=== PATIENT | female | born 1990 | race Caucasian/White ===

== ENCOUNTER → 2019-01-24 | Outpatient (CLI) | payer OTHER ==
--- NOTE | 2019-01-25 03:33 | US ---
EXAMINATION TYPE: US thyroid st tissue head/neck DATE OF EXAM: 01/24/2019 COMPARISON: NONE CLINICAL HISTORY: 28-year-old female E03.9 Hypothyroid. TECHNIQUE: Multiple sonographic images of the thyroid gland are obtained. FINDINGS: GLAND SIZE: Right Lobe: 4.5 x 1.3 x 1.4 cm Overall Parenchyma: homogenous Left Lobe: 4.5 x 1.3 x 1.5cm Overall Parenchyma: homogeneous Isthmus Thickness: 0.5 cm NODULES RIGHT: # of nodules measured on right: 1 1. 0.6 X 0.6 x 0.6 cm hypoechoic solid nodule at the lower pole with well-defined margins. This no dule is wider than tall and shows no intranodular vascularity. No prior LEFT: # of nodules measured on left: 0 Bilateral neck scanned, no evidence of lymphadenopathy. IMPRESSION: Solitary 6 mm solid nodule deep aspect of the right lower thyroid lobe.
== END ==
LOC: RADUSWWP 13:48
PROVIDERS: ATTEND Family Medicine
DX: E04.1 Nontoxic single thyroid nodule (principal)
CPT/HCPCS: 76536

== ENCOUNTER 2019-03-16 20:14 | Emergency (ER) | payer OTHER ==
[2019-03-16 20:20] VITALS: BP 176/97; TEMP 98.3
--- NOTE | 2019-03-16 21:02 | XR ---
EXAMINATION TYPE: XR hand complete LT DATE OF EXAM: 03/16/2019 COMPARISON: NONE HISTORY: Thumb pain TECHNIQUE: 3 views FINDINGS: Metacarpals are intact. I see no fracture nor dislocation. Joint spaces are normal. IMPRESSION: Negative left hand exam. No evidence of thumb fracture.
--- NOTE | 2019-03-16 21:31 | ED ---
General Adult HPI - General Chief complaint: Extremity Injury, Upper Stated complaint: thumb injury Time Seen by Provider: 03/16/19 20:23 Source: patient, RN notes reviewed, old records reviewed Mode of arrival: ambulatory Limitations: no limitations - History of Present Illness Initial comments: 28-year-old female patient with no pertinent past medical history presents to ED with left thumb injury. Patient reports that she had a friend removing a hot tub, patient reported a minor crush injury to the distal phalanx of her left thumb. Patient denies any other complaint. Patient denies any other injury. Systemic: Pt denies fatigue, myalgia, fever/chills, rash. Pt denies weakness, night sweats, weight loss. Neuro: Pt denies headache, visual disturbances, syncope or pre-syncope. HEENT: Pt denies ocular discharge or irritation, otalgia, rhinorrhea, pharyngitis or notable lymphadenopathy. Cardiopulmonary: Pt denies chest pain, SOB, heart palpitations, dyspnea on exertion. Abdominal/GI: Pt denies abdominal pain, n/v/d. : Pt denies dysuria, burning w/ urination, frequency/urgency. Denies new onset urinary or bowel incontinence. MSK: Pt denies myalgia, loss of strength or function in extremities. Neuro: Pt denies new onset weakness, paresthesias. - Related Data Allergies Allergy/AdvReac Type Severity Reaction Status Date / Time No Known Allergies Allergy Verified 03/16/19 20:20 Review of Systems ROS Statement: Those systems with pertinent positive or pertinent negative responses have been documented in the HPI. ROS Other: All systems not noted in ROS Statement are negative. Past Medical History Past Medical History: Hypertension, Thyroid Disorder Additional Past Medical History / Comment(s): atypical hemolytic uremic syndrome History of Any Multi-Drug Resistant Organisms: None Reported Additional Past Surgical History / Comment(s): Past Psychological History: No Psychological Hx Reported, Anxiety Smoking Status: Never smoker Past Alcohol Use History: None Reported Past Drug Use History: None Reported General Exam - General Exam Comments Initial Comments: Constitutional: NAD, AOX3, Pt has pleasant affect. HEENT: NC/AT, trachea midline, neck supple, no lymphadenopathy. Posterior pharynx non erythematous, without exudates. External ears appear normal, without discharge. Mucous membranes moist. Eyes PERRLA, EOM intact. There is no scleral icterus. No pallor noted. Cardiopulmonary: RRR, no murmurs, rubs or gallops, no JVD noted. Lungs CTAB in anterior and posterior schrader. No peripheral edema. Abdominal exam: Abdomen soft and non-distended. Abdomen non-tender to palpation in all 4 quadrants. Bowel sounds active in LLQ. No hepatosplenomegaly. No ecchymosis Neuro: CN II-XII grossly intact. No nuchal rigidity. MSK: Distal pharynx of left thumb mildly tender to palpation. Small contusion noted. No involvement of nail or nailbed. Full active range of motion of digit. Distal phalanx mildly tender. No posterior calf tenderness bilaterally, homans sign negative bilaterally. Posterior tibialis and radial pulse +2 bilaterally. Sensation intact in upper and lower extremities. Full active ROM in upper and lower extremities, 5/5 stregnth. Limitations: no limitations Course Vital Signs 03/16/19 03/16/19 20:16 21:36 Temperature 98.3 F Pulse Rate 92 67 Respiratory 18 17 Rate Blood Pressure 176/97 O2 Sat by Pulse 99 100 Oximetry Medical Decision Making - Medical Decision Making 28-year-old female patient with no pertinent past medical history presents to ED with left thumb injury. Patient reports that she had a friend removing a hot tub, patient reported a minor crush injury to the distal phalanx of her left thumb. Patient denies any other complaint. Patient denies any other injury. P atient vital signs displayed mild hypertension. Patient vital signs were not repeated by nursing staff prior to DC despite request, Physical exam displayed: Distal pharynx of left thumb mildly tender to palpation. Small contusion noted. No involvement of nail or nailbed. Full active range of motion of digit. Distal phalanx mildly tender. Plain film of left tenderness with acute pathology. Patient discharged will follow with primary care provider Justa hyatt for continued evaluation. Case discussed with Dr. Townsend. Disposition Clinical Impression: Contusion Disposition: HOME SELF-CARE Condition: Stable Instructions (If sedation given, give patient instructions): Contusion in Adults (ED) Additional Instructions: Patient to adhere to previously discussed treatment plan and will take medication(s) as directed. Patient to follow up with PCP in 1-2 days. Patient to return to ED if symptoms do not improve. May use Tylenol or Motrin as needed for pain. Follow with primary care provider in 1-2 days. Orthopedic consult provided if symptoms persist. Is patient prescribed a controlled substance at d/c from ED?: No Referrals: Lissette Toscano MD [Primary Care Provider] - 1-2 days Kevin Mendez DO [Doctor of Osteopathic Medicine] - 1-2 days
[2019-03-16 21:38] VITALS: PULSE 67; RESP 17
== END 2019-03-16 21:36 | disposition home or self-care (01) ==
LOC: EC 20:14
DX: S60.012A Contusion of left thumb without damage to nail, initial encounter (principal); W23.1XXA Caught, crushed, jammed, or pinched between stationary objects, initial encounter; Y93.89 Activity, other specified
CPT/HCPCS: 99283

== ENCOUNTER → 2021-01-24 | Outpatient (CLI) | payer OTHER | END | disposition home or self-care (01) | LOC: LABWHC1 15:34 | PROVIDERS: ATTEND Family Medicine | DX: Z20.822 Contact with and (suspected) exposure to COVID-19 (principal) | CPT/HCPCS: U0003; U0005 ==

== ENCOUNTER → 2021-01-29 | Outpatient (CLI) | payer OTHER | END | disposition home or self-care (01) | LOC: LABWHC1 16:25 | PROVIDERS: ATTEND Family Medicine | DX: Z20.822 Contact with and (suspected) exposure to COVID-19 (principal) | CPT/HCPCS: U0003; C9803; U0005 ==

== ENCOUNTER → 2021-05-13 | Outpatient (CLI) | payer OTHER ==
--- NOTE | 2021-05-14 04:28 | MR ---
EXAMINATION TYPE: MR knee LT wo con DATE OF EXAM: 05/13/2021 COMPARISON: None HISTORY: DEEP knee pain Multiplanar multiecho imaging of the left knee was performed with no contrast. There are small knee joint effusion. The anterior and posterior cruciate ligaments are intact. Medial meniscus is intact. Lateral meniscus is intact the collateral ligaments are intact. Joint spaces are fairly normal. I see no bony destructive process. There is no evidence of a fracture. IMPRESSION: Small knee joint effusion. Otherwise negative exam. No evidence of ligament or meniscal tear.
--- NOTE | 2021-05-14 08:32 | MR ---
EXAMINATION TYPE: MR knee RT wo con DATE OF EXAM: 05/14/2021 COMPARISON: None HISTORY: DEEP knee pain TECHNIQUE: Multiplanar, multisequence imaging of the right knee is performed without IV contrast. FINDINGS: MEDIAL MENISCUS: Anterior and posterior horns are intact without tear. LATERAL MENISCUS: Anterior and posterior horns are intact without tear. CRUCIATE LIGAMENTS: The anterior and posterior cruciate ligaments are intact and unremarkable. COLLATERAL LIGAMENTS: The medial collateral ligament and lateral collateral ligament complex are inta ct and unremarkable. EXTENSOR MECHANISM: Visualized quadriceps and patellar tendons are intact. EFFUSION: There is a debris-containing small knee joint effusion. POPLITEAL CYST: No popliteal/riley cyst. CARTILAGE: Articular cartilage is preserved. BONE MARROW SIGNAL: No focal abnormal marrow signal is appreciated. OTHER: No additional significant abnormality is appreciated. IMPRESSION: Small debris-containing knee joint effusion.
== END | disposition home or self-care (01) ==
LOC: RADMRIMAIN 16:16
PROVIDERS: ATTEND Family Medicine
DX: M25.462 Effusion, left knee (principal); M25.461 Effusion, right knee

== ENCOUNTER → 2021-06-26 | Outpatient (CLI) | payer OTHER ==
--- NOTE | 2021-06-27 10:43 | US ---
EXAMINATION TYPE: US thyroid st tissue head/neck DATE OF EXAM: 06/26/2021 COMPARISON: US 2019 CLINICAL HISTORY: E04.1 THYROID NODULE. Takes Levothyroxine GLAND SIZE: Right Lobe: 4.3 x 1.3 x 1.3 cm Overall Parenchyma: homogenous Left Lobe: 4.3 x 1.6 x 1.2 cm Overall Parenchyma: homogeneous Isthmus Thickness: 0.4 cm NODULES RIGHT: # of nodules measured on right: 1 1. .2 X 0.2 x 0.1 cm, upper pole,cystic, anechoic nodule, which is wider than tall, with smooth mar gins, without echogenic foci. No prior seen in right upper pole. ( prior right inferior nodule seen on 2019 US appears today as lobular extension to lateral thyroid) LEFT: # of nodules measured on left: 0 ISTHMUS: # of nodules measured in the isthmus: 0 Bilateral neck scanned: superior to right thyroid prominent lymph node is seen = 2.8 x 1.5 x 0.7cm. IMPRESSION: 1. Benign appearance thyroid ultrasound. 2. Prominent lymph node within the right neck. 2017 ACR TI-RADS LEVEL: TR-RADS 1 - BENIGN: No FNA *Highest TI-RADS level nodule reported
== END | disposition home or self-care (01) ==
LOC: RADUSWWP 15:26
PROVIDERS: ATTEND Family Medicine
DX: E04.1 Nontoxic single thyroid nodule (principal)
CPT/HCPCS: 76536

== ENCOUNTER → 2022-12-07 | Outpatient (CLI) | payer BC ==
--- NOTE | 2022-12-07 11:12 | XR ---
INDICATION: Patient age:Female; 32 years old; Reason for study: R09.81 nasal congestion; PHH. COMPARISON: None. TECHNIQUE: 5 views the sinus. FINDINGS: Soft tissues and osseous structures are within normal limits. No evidence to suggest radiopaque forei gn body. The paranasal sinuses and mastoid air cells are well aerated. IMPRESSION: Unremarkable sinus radiograph.
== END | disposition home or self-care (01) ==
LOC: RADXRMAIN 10:27
PROVIDERS: ATTEND Family Medicine
DX: R09.81 Nasal congestion (principal)
CPT/HCPCS: 70220

== ENCOUNTER 2023-11-02 09:50 | Observation (INO) | payer BC ==
--- NOTE | 2023-11-02 10:01 | ED ---
Dizziness HPI - General Source: patient, RN notes reviewed Mode of arrival: ambulatory Limitations: no limitations <Epi Maldonado - Last Filed: 11/02/23 09:59> <Rogelio Han - Last Filed: 11/02/23 12:19> - General Chief Complaint: Dizziness Stated Complaint: dizziy,Sleard speech Time Seen by Provider: 11/02/23 09:59 - History of Present Illness Initial Comments: 33-year-old female presents emergency Department chief complaint of intermittent episodes of dizziness, lightheadedness, slurred speech. She states only lasts a few seconds. She states is slurred speech is only associated with other symptoms. She denies any focal weakness no severe headache no trauma no prior medical complaints. (Epi Maldonado) Dictation was produced using [employer] dictation software. please excuse any grammatical, word or spelling errors. Chief Complaint: 33-year-old female presents with slurred speech and dizziness History of Present Illness: 33-year-old femalepast medical history presents to the emergency department after having episode of slurred speech. She was at work when this happened. He is preceded by an episode of dizziness. She called her primary care doctor to make an appointment and was instead instructed to come to the ER for concerns of possible CVA. Patient has any symptoms at this time. She noticed that when she would talk on the phone the last few words in her sense with seem a little slurred. The ROS documented in this emergency department record has been reviewed and confirmed by me. Those systems with pertinent positive or negative responses have been documented in the HPI. All other systems are other negative and/or noncontributory. (Rogelio Han) - Related Data Home Medications Medication Instructions Recorded Confirmed Levothyroxine Sodium [Synthroid] 100 mcg PO DAILY@0500 11/02/23 11/02/23 Loratadine [Claritin] 10 mg PO DAILY 11/02/23 11/02/23 Metoprolol Succinate (ER) [Toprol 100 mg PO DAILY 11/02/23 11/02/23 Xl] hydroCHLOROthiazide [Hydrodiuril] 25 mg PO DAILY 11/02/23 11/02/23 Allergies Allergy/AdvReac Type Severity Reaction Status Date / Time latex Allergy Swelling Verified 11/02/23 12:08 Review of Systems ROS Other: All systems not noted in ROS Statement are negative. <Epi Maldonado - Last Filed: 11/02/23 09:59> ROS Other: All systems not noted in ROS Statement are negative. <Rogelio Han - Last Filed: 11/02/23 12:19> ROS Statement: Those systems with pertinent positive or pertinent negative responses have been documented in the HPI. Past Medical History Past Medical History: Hypertension, Thyroid Disorder Additional Past Medical History / Comment(s): atypical hemolytic uremic syndrome History of Any Multi-Drug Resistant Organisms: None Reported Additional Past Surgical History / Comment(s): Past Psychological History: No Psychological Hx Reported, Anxiety Smoking Status: Never smoker Past Alcohol Use History: None Reported Past Drug Use History: None Reported <Epi Maldonado - Last Filed: 11/02/23 09:59> General Exam Limitations: no limitations <Epi Maldonado - Last Filed: 11/02/23 09:59> <Rogelio Han - Last Filed: 11/02/23 12:19> - General Exam Comments Initial Comments: Visual Physical Exam Vital signs reviewed General: Well-appearing, nontoxic, no acute distress. Head: Normocephalic, atraumatic Eyes: PERRLA, EOMI ENT: Airway patent Chest: Nonlabored breathing Skin: No visual rash, normal skin tone Neuro: Alert and oriented 3 Musculoskeletal: No gross abnormalities (Epi Maldonado) PHYSICAL EXAM: General Impression: Alert and oriented x3, not in acute distress HEENT: Normocephalic atraumatic, extra-ocular movements intact, pupils equal and reactive to light bilaterally, mucous membranes moist. Cardiovascular: Heart regular rate and rhythm Chest: Able to complete full sentences, no retractions, no tachypnea Abdomen: abdomen soft, non-tender, non-distended, no organomegaly Musculoskeletal: Pulses present and equal in all extremities, no peripheral edema Motor: no focal deficits noted Neurological: CN II-XII grossly intact, no focal motor or sensory deficits noted, NIH 0 Skin: Intact with no visualized rashes Psych: Normal affect and mood (Rogelio Han) Course Vital Signs 11/02/23 09:55 Temperature 98.3 F Pulse Rate 91 Respiratory 18 Rate Blood Pressure 137/99 O2 Sat by Pulse 98 Oximetry Medical Decision Making <Epi Maldonado - Last Filed: 11/02/23 09:59> - Lab Data Result diagrams: 11/02/23 11:17 11/02/23 11:17 <Rogelio Han - Last Filed: 11/02/23 12:19> - Medical Decision Making I completed the quick note portion of this chart signed Epi Maldonado PA-C (Epi Maldonado) Was pt. sent in by a medical professional or institution (, PA, TRANSPORTATION MAINTENANCE SUPERVISOR, urgent care, hospital, or shelter...) When possible be specific @ -No Did you speak to anyone other than the patient for history (EMS, parent, family, police, friend...)? What history was obtained from this source @ -No Did you review nursing and triage notes (agree or disagree)? Why? @ -I reviewed and agree with nursing and triage notes Were old charts reviewed (outside hosp., previous admission, EMS record, old EKG, old radiological studies, urgent care reports/EKG's, shelter records)? Report findings @ -No old charts were reviewed Differential Diagnosis (chest pain, altered mental status, abdominal pain women, abdominal pain men, vaginal bleeding, musculoskeletal, weakness, fever, dyspnea, syncope, headache, dizziness, GI bleed, back pain, seizure, CVA, palpatations, mental health)? @ - Differential CVA: Ischemic stroke, hemorrhagic stroke, brain tumor, atypical migraine, Wernicke's encephalopathy, seizure, multiple sclerosis, meningitis, encephalitis, hypoglycemia, Guillain-Weiss, electrolytes disturbance, myasthenia gravis.... This is not meant to be an all-inclusive list EKG interpreted by me (3pts min.). @ -None done X-rays interpreted by me (1pt min.). @ -None done CT interpreted by me (1pt min.). @ -Computed tomography scan of the brain shows no intercranial bleed U/S interpreted by me (1pt. min.). @ -None done What testing was considered but not performed or refused? (CT, X-rays, U/S, labs)? Why? @ -None What meds were considered but not given or refused? Why? @ -None Did you discuss the management of the patient with other professionals (professionals i.e. , PA, TRANSPORTATION MAINTENANCE SUPERVISOR, lab, RT, psych nurse, social psychologist, can pusher, teacher, policy officer, correctional case manager)? Give summary @ -Case discussed with hospitalist for admission Was smoking cessation discussed for >3mins.? @ -No Was critical care preformed (if so, how long)? @ -No Were there social determinants of health that impacted care today? How? (Homelessness, low income, unemployed, alcoholism, drug addiction, transportation, low edu. Level, literacy, decrease access to med. care, penitentiary, rehab)? @ -No Was there de-escalation of care discussed even if they declined (Discuss DNR or withdrawal of care, Hospice)? DNR status @ -No What co-morbidities impacted this encounter? (DM, HTN, Smoking, COPD, CAD, Cancer, CVA, ARF, Chemo, Hep., AIDS, mental health diagnosis, sleep apnea, morb id obesity)? @ -None Was patient admitted / discharged? Hospital course, mention meds given and route, prescriptions, significant lab abnormalities, going to OR and other pertinent info. @ -33-year-old female presents emergency department for episodes of slurred speech. Vital signs are stable. Physical examination is benign. Patient elis es any symptoms at bedside. NIH score is 0. Laboratory evaluation is unremarkable. Computed tomography scan does not show any evidence of intracranial bleed however radiologist did make a comment that perhaps there is a area of low attenuation in the right parieto-occipital junction. Patient not ified of these results. She is agreeable with admission with neurology consultation. Undiagnosed new problem with uncertain prognosis? @ -No Drug Therapy requiring intensive monitoring for toxicity (Heparin, Nitro, Insulin, Cardizem)? @ -No Were any procedures done? @ -No Diagnosis/symptom? Acute, or Chronic, or Acute on Chronic? Uncomplicated (without systemic symptoms) or Complicated (systemic symptoms)? @ -Slurred speech Side effects of treatment? @ -No Exacerbation, Progression, or Severe Exacerbation? @ -No Poses a threat to life or bodily function? How? (Chest pain, USA, MS, pneumonia, PE, COPD, DKA, ARF, appy, cholecystitis, CVA, Diverticulitis, Homicidal, Suicidal, threat to staff... and all critical care pts) @ -yes (Rogelio Han) - Lab Data Lab Results 11/02/23 11/02/23 11/02/23 Range/Units 11:17 11:17 11:17 WBC 8.8 (3.8-10.6) k/uL RBC 5.41 H (3.80-5.40) m/uL Hgb 15.7 (11.4-16.0) gm/dL Hct 46.7 H (34.0-46.0) % MCV 86.3 (80.0-100.0) fL MCH 29.1 (25.0-35.0) pg MCHC 33.7 (31.0-37.0) g/dL RDW 12.6 (11.5-15.5) % Plt Count 365 (150-450) k/uL MPV 7.3 Neutrophils % 65 % Lymphocytes % 27 % Monocytes % 4 % Eosinophils % 2 % Basophils % 1 % Neutrophils # 5.7 (1.3-7.7) k/uL Lymphocytes # 2.4 (1.0-4.8) k/uL Monocytes # 0.4 (0-1.0) k/uL Eosinophils # 0.2 (0-0.7) k/uL Basophils # 0.1 (0-0.2) k/uL Sodium 140 (137-145) mmol/L Potassium 3.7 (3.5-5.1) mmol/L Chloride 100 (98-107) mmol/L Carbon Dioxide 29 (22-30) mmol/L Anion Gap 11 mmol/L BUN 9 (7-17) mg/dL Creatinine 0.69 (0.52-1.04) mg/dL Est GFR (CKD-EPI)AfAm >90 (>60 ml/min/1.73 sqM) Est GFR (CKD-EPI)NonAf >90 (>60 ml/min/1.73 sqM) Glucose 91 (74-99) mg/dL Calcium 9.5 (8.4-10.2) mg/dL Magnesium 1.8 (1.6-2.3) mg/dL Total Bilirubin 0.5 (0.2-1.3) mg/dL AST 22 (14-36) U/L ALT 20 (4-34) U/L Alkaline Phosphatase 85 (38-126) U/L Troponin I <0.012 (0.000-0.034) ng/mL Total Protein 8.3 H (6.3-8.2) g/dL Albumin 4.6 (3.5-5.0) g/dL Disposition <Epi Maldonado - Last Filed: 11/02/23 09:59> Decision Time: 12:19 <Rogelio Han - Last Filed: 11/02/23 12:19> Clinical Impression: Slurred speech Disposition: ADMITTED IP TO THIS HOSP Condition: Fair Referrals: Lissette Toscano MD [Primary Care Provider] - 1-2 days
--- NOTE | 2023-11-02 10:34 | CT ---
EXAMINATION TYPE: CT brain wo con DATE OF EXAM: 11/02/2023 COMPARISON: NONE HISTORY: dizzy CT DLP: 1094.9 mGycm. Automated Exposure Control for Dose Reduction was Utilized. TECHNIQUE: CT scan of the head is performed without contrast. FINDINGS: There is no acute intracranial hemorrhage, mass effect, or midline shift identified. Ther e is a low area of attenuation parieto-occipital junction most likely be related to a prominent sulcu s. The ventricles and sulci are within normal limits in size. The globes are intact and changes of mild sinus. 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 Discussed with ref erring clinician 10:30 AM 11/02/2023. IMPRESSION: 1. No acute intracranial hemorrhage, mass effect, or midline shift is seen. There is a area of low at tenuation in the right parieto-occipital junction posteriorly which is indeterminate. May represent a prominent sulcus. Other etiologies not excluded. Recommend MRI.
--- NOTE | 2023-11-02 10:39 | XR ---
EXAMINATION TYPE: XR chest 2V DATE OF EXAM: 11/02/2023 COMPARISON: None INDICATION: Dizziness slurred speech TECHNIQUE: Frontal and lateral views of the chest are obtained. FINDINGS: The heart size is normal. The pulmonary vasculature is normal. The lungs are clear. IMPRESSION: 1. No acute pulmonary process.
[2023-11-02 11:31] LABS: Basophils # (A) 0.1 k/uL (0-0.2); Basophils % (A) 1 %; Eosinophils # (A) 0.2 k/uL (0-0.7); Eosinophils % (A) 2 %; HCT 46.7 % (34.0-46.0); HGB 15.7 gm/dL (11.4-16.0); Lymphocytes # (A) 2.4 k/uL (1.0-4.8); Lymphocytes % (A) 27 %; MCH 29.1 pg (25.0-35.0); MCHC 33.7 g/dL (31.0-37.0); MCV 86.3 fL (80.0-100.0); Mean Platelet Volume 7.3; Monocytes # (A) 0.4 k/uL (0-1.0); Monocytes % (A) 4 %; Neutrophils # (A) 5.7 k/uL (1.3-7.7); Neutrophils % (A) 65 %; Platelet Count 365 k/uL (150-450); RBC 5.41 m/uL (3.80-5.40); RDW 12.6 % (11.5-15.5); WBC 8.8 k/uL (3.8-10.6)
[2023-11-02 11:44] LABS: Potassium 3.7 mmol/L (3.5-5.1)
[2023-11-02 11:46] LABS: ALT 20 U/L (4-34); AST 22 U/L (14-36); African American GFR (CKD) >90 (>60 ml/min/1.73 sqM); Albumin 4.6 g/dL (3.5-5.0); Alkaline Phosphatase 85 U/L (38-126); Anion Gap 11 mmol/L; Blood Urea Nitrogen 9 mg/dL (7-17); Calcium 9.5 mg/dL (8.4-10.2); Carbon Dioxide 29 mmol/L (22-30); Chloride 100 mmol/L (98-107); Glucose 91 mg/dL (74-99); Magnesium 1.8 mg/dL (1.6-2.3); Non-African American GFR(CKD) >90 (>60 ml/min/1.73 sqM); Sodium 140 mmol/L (137-145); Total Bilirubin 0.5 mg/dL (0.2-1.3); Total Protein 8.3 g/dL (6.3-8.2)
[2023-11-02] MEDS ORDERED: ASPIRIN 81 MG PO STA (11:55)
[2023-11-02] MEDS ORDERED: NALOXONE 0.4 MG/ML 1 ML VIAL IV PRN (12:14)
--- NOTE | 2023-11-02 15:58 | MR ---
EXAMINATION TYPE: MR brain wo con DATE OF EXAM: 11/02/2023 3:16 PM CLINICAL INDICATION:Female, 33 years old with history of abnormal CT; PHH, Abnormal CT COMPARISON: CT 11/02/2023. TECHNIQUE: Multi planar, multi sequence imaging was performed through the brain including: T1, T2, In version recovery, Diffusion weighted imaging, and gradient echo imaging. No gadolinium was given. FINDINGS: There is a prominent sulcus in the area of concern on prior CT. The hurtado-white junctions, ventricular system, and cisterns appear unremarkable.. Midline structures show no abnormality. Diffusion-weighte d imaging shows no evidence of restricted diffusion. The susceptibility weighted images do not reveal any evidence for micro-hemorrhage. The bone marrow signal is within normal limits. Paranasal sinuses and mastoid air cells: No significant paranasal sinus disease. Visualized orbits: Orbital contents are intact. IMPRESSION: No evidence of intracranial mass or acute/subacute infarct. Finding on prior CT correlates with a pro minent sulcus.
--- NOTE | 2023-11-02 16:08 | P.CNNES ---
History of Present Illness Consult date: 11/02/23 Requesting physician: Rogelio Han Reason for Consult: slurred speech, abnormal CT History of Present Illness: Patient is a 33-year-old right-handed female with history of hypertension, came to the hospital at 9:50 AM because of possible TIA. Patient states that for last 1 week she has been having random dizzy spells. It is a quick spin lasting for just a couple seconds and then goes away and she is fine afterwards. It feels like a floating sensation like her vision catching up to the head. The symptoms can happen at no particular time of the day, she would be sitting and looking at her cell phone and it happens. No relation to changes in head or body position. These episodes were occurring several times a day. No other symptoms. This morning she woke up at 6:40 AM and went to work at 8 PM. She wa s feeling fine at that time. At 8:30 AM she was on the phone and also on the computer, as she works as a customer service. While talking, she noted her words were not completing, slightly slurred speech, and felt like she was drunk although she was not drinking. The slurred speech would last for a minute and then goes away and come back off and on for about half an hour. She got concerned therefore came to the hospital. There was no associated facial droop, visual disturbance, focal numbness tingling or weakness. White is on arrival blood pressure 137/99, which has gone up to 160/107 and then 158/106, pulse rate 91 temperature 98.3. Blood test shows normal CBC, CMP, troponin. Urine hCG negative. CT head revealed no acute intracranial process. There is an area of low attenuation in the right parieto-occipital junction posteriorly, which is indeterminate. May represent a prominent sulcus. Other etiologies is not excluded. I personally reviewed CT head, to meet appears more of a prominent sulcus. Chest x-ray showed no acute per minute process. Patient does not take any control pills. She does have hypertension for 11 years, currently on metoprolol, HCTZ and levothyroxine. Patient does not take any antiplatelet medication at home. She denies any tobacco or alcohol. No diabetes. She had undergone E-sure procedure. Review of Systems Constitutional: Denies chills, Denies fever Eyes: denies blurred vision, denies diplopia, denies pain Ears: deny: decreased hearing, ear discharge Ears, nose, mouth and throat: Denies headache, Denies sore throat Cardiovascular: Denies chest pain, Denies shortness of breath Respiratory: Denies cough, Denies excessive sputum Gastrointestinal: Denies abdominal pain, Denies diarrhea, Denies nausea, Denies vomiting Genitourinary: Denies dysuria, Denies hematuria, Denies urge incontinence Musculoskeletal: Denies low back pain, Denies myalgias, Denies neck pain Integumentary: Denies pruritus, Denies rash Neurological: Reports as per HPI Psychiatric: Denies anxiety, Denies depression Hematologic/Lymphatic: Denies easy bleeding, Denies easy bruising Past Medical History Past Medical History: Hypertension, Thyroid Disorder Additional Past Medical History / Comment(s): atypical hemolytic uremic syndrome History of Any Multi-Drug Resistant Organisms: None Reported Additional Past Surgical History / Comment(s): Past Psychological History: No Psychological Hx Reported, Anxiety Smoking Status: Never smoker Past Alcohol Use History: None Reported Past Drug Use History: None Reported Medications and Allergies Home Medications Medication Instructions Recorded Confirmed Type Levothyroxine Sodium [Synthroid] 100 mcg PO DAILY@0500 11/02/23 11/02/23 History Loratadine [Claritin] 10 mg PO DAILY 11/02/23 11/02/23 History Metoprolol Succinate (ER) [Toprol 100 mg PO DAILY 11/02/23 11/02/23 History Xl] hydroCHLOROthiazide [Hydrodiuril] 25 mg PO DAILY 11/02/23 11/02/23 History Allergies Allergy/AdvReac Type Severity Reaction Status Date / Time latex Allergy Swelling Verified 11/02/23 12:08 Physical Examination - Vital Signs Vital Signs: Vital Signs Temp Pulse Resp BP Pulse Ox 11/02/23 14:42 68 16 160/107 98 11/02/23 12:28 90 20 154/93 98 11/02/23 09:55 98.3 F 91 18 137/99 98 Intake and Output 11/02/23 11/02/23 11/02/23 06:59 14:59 22:59 Other: Weight 95.254 kg Patient is a young female, very pleasant, in no acute distress. Patient is alert awake oriented to time place and person. Speech and language functions are normal. Patient can name and repeat very well. No aphasia or dysarthria. Attention, concentration and fund of knowledge is adequate. On cranial nerve examination, pupils are equal, round and reacting to light, visual schrader are full on confrontation, with no neglect on double simultaneous stimulation. Extraocular muscles are intact with no nystagmus. Face is symmetr ic, tongue protrudes to the midline. Palatal elevation and sensation normal, hearing and shoulder shrug normal, facial sensation normal. On muscle strength testing, there is no pronator drift and the strength is normal in arms and legs distally and proximally. Deep tendon reflexes are symmetric 1+ to 2 in the upper limbs, 2+ at the knees, 2 ankles and plantars downgoing bilaterally. Sensory to touch is equal with no neglect on double simultaneous stimulation. Cerebellar function showed no ataxia for [id number] testing. No dysdiadochokinesia. No ataxia for [id number] testing on either side. Tone and bulk of muscles normal. Gait deferred.. On general examination, there is no carotid bruit or murmur, S1-S2 audible. Chest is clear on consultation. Abdomen is soft nontender. No organomegaly, bowel sounds present. Peripheral pulses are present. No peripheral edema. Results - Laboratory Findings CBC and BMP: 11/02/23 11:17 11/02/23 11:17 Abnormal Lab Findings: Abnormal Labs 11/02/23 11/02/23 11:17 11:17 RBC 5.41 H Hct 46.7 H Total Protein 8.3 H Assessment and Plan Assessment: * Possible TIA, manifesting with slurred speech off and on for half an hour, and now resolved. * Recurrent dizzy spells off and on for last 1 week, unclear cause, rule out arrhythmia * Hypertension, uncontrolled Plan: * MRI of the brain without contrast, revealed no evidence of intracranial mass or acute/subacute infarct. Findings on prior CT correlates with a prominent sulcus. I personally reviewed MRI, and agree with the findings. * 2-D echo with bubble study to rule out PFO * Carotid Doppler, rule out stenosis * Fasting a.m. lipid panel * Hemoglobin A1c * Optimize control of blood pressure. * Patient received aspirin 324 mg in the ER. Continue aspirin 81 mg daily ind efinitely. * Neuro checks as per protocol. * Telemetry monitoring rule out any arrhythmia * DVT prophylaxis: Heparin 5000 units subcu every 12 hours * Neurology will continue to follow. Thank you for the consult.
--- NOTE | 2023-11-02 16:57 | US ---
EXAMINATION TYPE: US carotid duplex BILAT DATE OF EXAM: 11/02/2023 COMPARISON: NONE CLINICAL INDICATION: Female, 33 years old with history of TIA, hypertension; Dizziness, HTN TECHNIQUE: Carotid duplex ultrasound examination. Indirect Doppler criteria was utilized. FINDINGS: EXAM MEASUREMENTS: RIGHT: Peak Systolic Velocity (PSV) cm/sec ----- Right CCA: 94 ----- Right ICA: 110 ----- Right ECA: 104 ICA/CCA ratio: 1.17 RIGHT: End Diastole cm/sec ----- Right CCA: 24.0 ----- Right ICA: 43.6 ----- Right ECA: 25.2 LEFT: Peak Systolic Velocity (PSV) cm/sec ----- Left CCA: 91.5 ----- Left ICA: 80.7 ----- Left ECA: 77.1 ICA/CCA ratio: 0.88 LEFT: End Diastole cm/sec ----- Left CCA: 28.3 ----- Left ICA: 36.0 ----- Left ECA: 16.4 VERTEBRALS (direction of flow): Right Vertebral: Antegrade Left Vertebral: Antegrade Rhythm: Normal CODING EDUCATOR NOTES: Minimal plaque bilateral bifurcations. No evidence of increased velocities IMPRESSION: Less than 50% stenosis of the bilateral carotid bifurcations. Criteria for Assigning % of Stenosis / Diameter reduction (Estimation based on the indirect measurements of the internal carotid artery velocities (ICA PSV). 1. Normal (no stenosis)=ICA PSV < 125 cm/s: ratio < 2.0: ICA EDV<40 cm/s. 2. Less than 50% stenosis=ICA PSV < 125 cm/s: ratio < 2.0: ICA EDV<40 cm/s. 3. 50 to 69% stenosis=ICA PSV of 125 to 230 cm/s: ration 2.0 ? 4.0: ICA EDV 40-100 cm/s. 4. Greater than 70% stenosis to near occlusion= ICA PSV > 230 cm/s: ratio > 4.0: ICA EDV > 100 cm/s. 5. Near occlusion= ICA PSV velocities may be low or undetectable: variable ratio and ICA EDV. 6. Total occlusion=unable to detect flow.
[2023-11-02] MEDS: FAMOTIDINE 20 MG/2 ML VIAL IV SCH (21:06)
[2023-11-02] MEDS: HEPARIN SODIUM,PORCINE 5,000 UNIT/ML 1 ML VIAL SQ SCH (21:14)
[2023-11-03] MEDS ORDERED: LEVOTHYROXINE 100 MCG TAB PO SCH (05:00)
[2023-11-03 06:21] VITALS: RESP 18
[2023-11-03] MEDS: FAMOTIDINE 20 MG/2 ML VIAL IV SCH (08:21)
[2023-11-03] MEDS: HEPARIN SODIUM,PORCINE 5,000 UNIT/ML 1 ML VIAL SQ SCH (08:21)
[2023-11-03] MEDS ORDERED: ASPIRIN 81 MG PO SCH (09:00)
[2023-11-03] MEDS ORDERED: hydroCHLOROthiazide 25 MG TAB PO SCH (09:00)
[2023-11-03] MEDS ORDERED: METOPROLOL SUCCINATE (ER) 100 MG TAB.ER.24H PO SCH (09:00)
--- NOTE | 2023-11-03 09:20 | P.HPIM ---
History of Present Illness This is a pleasant 33 results female with past medical history of hypertension, hypothyroidism. Patient presents because of a transient and occasional drowsiness and slurred speech for 1 weeks duration Patient told me she has these dizzy spells that last is 45 minutes, it happens even while she was sitting, she has several of them but now resolved She describes there is delayed in her vision to catch up things when she looks and to the side when this happens but not back to normal. Today she noticed little bit slurred speech which was abnormal for her so she decided to come to the emergency room She has another episode last one of which lasted about 5 minutes at 9:00. But she had multiple of them yesterday. Currently patient is asymptomatic and back to her baseline. Pain or dyspnea. No palpitation. No change in urine or bowel habits. No fever. Currently she denies any headache dizziness weakness numbness. No blur red/double vision no slurred speech. Denies smoking alcohol or illicit drugs Patient Vitas looks stable, blood pressure mildly elevated Labs were unremarkable including CBC, BMP and liver enzymes and troponins. Urine test was negative. Chest x-ray is negative for acute process. CT of the brain is negative for acute process but there is prominent area of the right parieto-occipital lobe. Review of Systems Review of systems CONSTITUTIONAL: No fever, no malaise, no fatigue. HEENT: No recent visual problems or hearing problems. Denied any sore throat. CARDIOVASCULAR: No orthopnea, PND, no palpitations, no syncope. PULMONARY: No shortness of breath, no cough, no hemoptysis. GASTROINTESTINAL: No diarrhea, no nausea, no vomiting, no abdominal pain. Normoactive bowel sounds. NEUROLOGICAL: No headaches, no weakness, no numbness. HEMATOLOGICAL: Denies any bleeding or petechiae. GENITOURINARY: Denies any burning micturition, frequency, or urgency. MUSCULOSKELETAL/RHEUMATOLOGICAL: Denies any joint pain, swelling, or any muscle pain. ENDOCRINE: Denies any polyuria or polydipsia. Past Medical History Past Medical History: Hypertension, Thyroid Disorder Additional Past Medical History / Comment(s): atypical hemolytic uremic syndrome History of Any Multi-Drug Resistant Organisms: None Reported Additional Past Surgical History / Comment(s): Past Psychological History: No Psychological Hx Reported, Anxiety Smoking Status: Never smoker Past Alcohol Use History: None Reported Past Drug Use History: None Reported Medications and Allergies Home Medications Medication Instructions Recorded Confirmed Type Levothyroxine Sodium [Synthroid] 100 mcg PO DAILY@0500 11/02/23 11/02/23 History Loratadine [Claritin] 10 mg PO DAILY 11/02/23 11/02/23 History Metoprolol Succinate (ER) [Toprol 100 mg PO DAILY 11/02/23 11/02/23 History Xl] hydroCHLOROthiazide [Hydrodiuril] 25 mg PO DAILY 11/02/23 11/02/23 History Allergies Allergy/AdvReac Type Severity Reaction Status Date / Time latex Allergy Swelling Verified 11/02/23 12:08 Physical Exam Vitals: Vital Signs Temp Pulse Resp BP Pulse Ox 11/02/23 12:28 90 20 154/93 98 11/02/23 09:55 98.3 F 91 18 137/99 98 Intake and Output 11/01/23 11/02/23 11/02/23 22:59 06:59 14:59 Other: Weight 95.254 kg GENERAL: The patient is alert and oriented x3, not in any acute distress. Well developed, well nourished. HEENT: Pupils are round and equally reacting to light. EOMI. No scleral icterus. No conjunctival pallor. Normocephalic, atraumatic. No pharyngeal erythema. No thyromegaly. CARDIOVASCULAR: S1 and S2 present. No murmurs, rubs, or gallops. PULMONARY: Chest is clear to auscultation, no wheezing , no crackles. ABDOMEN: Soft, nontender, nondistended, normoactive bowel sounds. No palpable organomegaly. MUSCULOSKELETAL: No joint swelling or deformity. EXTREMITIES: No cyanosis, clubbing, or pedal edema. NEUROLOGICAL: Gross neurological examination did not reveal any focal deficits. SKIN: No rashes. no petechiae. Results CBC & Chem 7: 11/02/23 11:17 11/02/23 11:17 Labs: Abnormal Lab Results - Last 24 Hours (Table) 11/02/23 11/02/23 Range/Units 11:17 11:17 RBC 5.41 H (3.80-5.40) m/uL Hct 46.7 H (34.0-46.0) % Total Protein 8.3 H (6.3-8.2) g/dL Assessment and Plan Assessment: transient and occasional drowsiness and slurred speech for 1 weeks duration. Rule out TIA stroke. Hypertension Hypothyroidism Plan: Continue with aspirin Follow-up with neurology consult MRI of the brain follow-up Labs and medication were reviewed.. Continue same treatment. Continue with symptomatic treatment. Resume home medication. Monitor labs and vitals. DVT and GI prophylaxis. Further recommendations as per clinical course of the patient DVT prophylaxis: Subcutaneous heparin GI Prophylaxis: Pepcid PT/OT: Pending Prognosis is guarded
--- NOTE | 2023-11-03 10:20 | CA ---
Transthoracic Echo Report Name: Sharon Moura Age: 33 Gender: F : 1990 Exam Date: 11/02/2023 16:28 Exam Location: [facility] Ht (in): 62 Wt (lb): 210 Ordering Physician: Shahriar Bethea MD Attending/Referring Phys: Motor Vehicle Field Representative Sabina Becerra RDCS Procedure CPT: Indications: ?TIA Cardiac Hx: Technical Quality: Fair Contrast 1: Agitated Saline Total Dose (mL): 10 Contrast 2: Total Dose (mL): MEASUREMENTS (Male / Female) Normal Values 2D ECHO LV Diastolic Diameter PLAX 3.8 cm 4.2 - 5.9 / 3.9 - 5.3 cm LV Systolic Diameter PLAX 2.0 cm IVS Diastolic Thickness 1.3 cm 0.6 - 1.0 / 0.6 - 0.9 cm LVPW Diastolic Thickness 1.3 cm 0.6 - 1.0 / 0.6 - 0.9 cm LV Relative Wall Thickness 0.7 RV Internal Dim ED PLAX 2.9 cm LA Volume 51.5 cm??? 18 - 58 / 22 - 52 cm??? LA Volume Index 24.6 cm???/m??? 16 - 28 cm???/m??? M-MODE Aortic Root Diameter MM 3.0 cm LA Systolic Diameter MM 2.8 cm LA Ao Ratio MM 0.9 AV Cusp Separation MM 1.8 cm DOPPLER AV Peak Velocity 120.6 cm/s AV Peak Gradient 5.8 mmHg AV Mean Velocity 82.9 cm/s AV Mean Gradient 3.0 mmHg AV Velocity Time Integral 20.8 cm LVOT Peak Velocity 101.7 cm/s LVOT Peak Gradient 4.1 mmHg LVOT Velocity Time Integral 18.8 cm MV Area PHT 4.3 cm??? Mitral E Point Velocity 62.5 cm/s Mitral A Point Velocity 44.4 cm/s Mitral E to A Ratio 1.4 MV Deceleration Time 175.8 ms MV E' Velocity 8.3 cm/s Mitral E to MV E' Ratio 7.6 TR Peak Velocity 207.3 cm/s TR Peak Gradient 17.2 mmHg Right Ventricular Systolic Press 22.2 mmHg FINDINGS Left Ventricle Mildly increased left ventricular wall thickness. Left ventricular cavity size normal. Normal left ventricular systolic function with no obvious regional wall motion abnormalities. Left ventricular ejection fraction is estimated at 55-60 %. Right Ventricle Normal right ventricular size and function. Right ventricular systolic pressure within normal limits. Right Atrium Normal right atrial size. Negative agitated saline bubble study for right to left shunt. Left Atrium Normal left atrial size. Mitral Valve Structurally normal mitral valve. No mitral stenosis, regurgitation or prolapse. Aortic Valve Trileaflet aortic valve. No aortic valve stenosis or regurgitation. Tricuspid Valve Structurally normal tricuspid valve. Mild tricuspid regurgitation. Pulmonic Valve Structurally normal pulmonic valve. Pericardium No pericardial effusion. Aorta Normal size aortic root and proximal ascending aorta. CONCLUSIONS Left ventricular ejection fraction is estimated at 55-60 %. No obvious regional wall motion abnormalities. Mild concentric LVH No significant valvular dysfunction No significant chamber size abnormality RVSP estimated at 22 mmHg Previewed by: Dr Isrrael Ladd (Electronically Signed) Final Date: 03 November 2023 10:19
[2023-11-03 11:13] LABS: Chol/HDL Ratio 5.65 Ratio
--- NOTE | 2023-11-03 14:17 | P.PN ---
Subjective Progress Note Date: 11/03/23 Patient is seen for a follow-up. Patient is laying comfortably in the bed. Offers no complaints. No further dizzy spells. No numbness or tingling. Objective - Vital Signs Vital signs: Vital Signs Temp 98.8 F 11/02/23 21:00 Pulse 81 11/03/23 12:00 Resp 18 11/03/23 12:00 BP 133/91 11/03/23 12:00 Pulse Ox 98 11/03/23 12:00 FiO2 Intake & Output 11/02/23 11/03/23 11/03/23 18:59 06:59 18:59 Weight 95.254 kg - Exam Normal completely. - Labs CBC & Chem 7: 11/02/23 11:17 11/02/23 11:17 Labs: Abnormal Lab Results - Last 24 Hours (Table) 11/03/23 Range/Units 06:33 Triglycerides 205.00 H (0.00-149.00) mg/dL VLDL Cholesterol, Calc 41.00 H (5.00-40.00) mg/dL HDL Cholesterol 31.00 L (40.00-60.00) mg/dL Assessment and Plan Assessment: * Possible TIA, manifesting with slurred speech off and on for half an hour, and now resolved. * Recurrent dizzy spells off and on for last 1 week, unclear cause, rule out arrhythmia * Hypertension, uncontrolled Plan: * MRI of the brain without contrast, revealed no evidence of intracranial mass or acute/subacute infarct. Findings on prior CT correlates with a prominent sulcus. I personally reviewed MRI, and agree with the findings. * 2-D echo with bubble study revealed normal left-ventricular size and systolic function with EF 55-60%. Mild concentric LVH. Left atrial size normal. Bubble study negative for [id number] shunt. * Carotid Doppler, showed less than 50% stenosis bilateral ICA. Antegrade flow in both vertebral arteries. * Fasting a.m. lipid panel with cholesterol 175, LDL 103, HDL 31, triglycerides 205. Start Lipitor 20 mg daily to target LDL < 70. * Hemoglobin A1c 5.5 * Optimize control of blood pressure. Blood pressure much better controlled, with most recent 133/91. * Patient received aspirin 324 mg in the ER. Continue aspirin 81 mg daily indefinitely. * Telemetry monitoring so far showing no arrhythmia. * If patient continues to have episodic dizzy spells, then would recommend a 30 day event monitoring as outpatient. Patient does not want event monitoring at this time. * Neurologically clear for discharge.
[2023-11-03 15:28] VITALS: BP 136/90; PULSE 80; TEMP 97.6
--- NOTE | 2023-11-03 16:22 | P.CRDCN ---
History of Present Illness History of present illness: HISTORY OF PRESENTING ILLNESS This is a pleasant 33-year-old with past medical history significant for hypertension, atypical hemolytic uremic syndrome, Chinyere's thyroiditis. She believes she is seen a airplane captain in the past and has had a stress test a few years ago. She came to the hospital secondary to episode of feeling like she could not get the words out and was concern of stroke/TIA. She had extensive workup including brain MRI which was unrevealing. She had a echocardiogram performed which showed preserved left anterior function with mild LVH. EKG does show sinus rhythm with minimal ST depressions and cardiology was consult to secondary abnormal EKG. She denies any chest pain or pressure. No shortness breath. REVIEW OF SYSTEMS At the time of my exam: CONSTITUTIONAL: Denies fever or chills. CARDIOVASCULAR: Denies chest pain, shortness of breath, orthopnea, PND or palpitations. RESPIRATORY: Denies cough. GASTROINTESTINAL: Denies abdominal pain, diarrhea, constipation, nausea or vomiting. MUSCULOSKELETAL: Denies myalgias. NEUROLOGIC: Denies numbness, tingling or weakness. ENDOCRINE: Denies fatigue, weight change, polydipsia or polyurina. GENITOURINARY: Denies burning, hematuria or urgency with micturation. HEMATOLOGIC: Denies history of anemia or bleeding. PHYSICAL EXAMINATION Vital signs reviewed. CONSTITUTIONAL: No apparent distress. HEENT: Head is normocephalic. Pupils are equal, round. Sclerae anicteric. Mucous membranes of the mouth are moist. No JVD. No carotid bruit. CHEST EXAMINATION: Lungs are clear to auscultation. No chest wall tenderness is noted on palpation or with deep breathing. HEART EXAMINATION: Regular rate and rhythm. S1, S2 heard. No murmurs, gallops or rub. ABDOMEN: Soft, nontender. Positive bowel sounds. EXTREMITIES: 2+ peripheral pulses, no lower extremity edema and no calf tenderness. NEUROLOGIC EXAMINATION: Patient is awake, alert and oriented x3. ASSESSMENT 1. Abnormal EKG, ST depressions, do not suspect any acute coronary syndrome or angina-type symptoms. May be related to LVH 2. Hypertension 3. Mild LVH and an echo 4. Dysarthria, no significant abnormalities noted on MRI PLAN Abnormal EKG with minimal ST depressions which may be related to mild LVH noted on echo. Attempt to obtain prior records however not have any significant angina-type symptoms. Patient did have symptoms somewhat concerning for TIA in May consider outpatient workup with event monitor. No need for further workup as an inpatient and okay for discharge with outpatient follow-up within 1 week. Past Medical History Past Medical History: Hypertension, Thyroid Disorder Additional Past Medical History / Comment(s): atypical hemolytic uremic syndrome History of Any Multi-Drug Resistant Organisms: None Reported Additional Past Surgical History / Comment(s): Past Anesthesia/Blood Transfusion Reactions: No Reported Reaction Past Psychological History: No Psychological Hx Reported Smoking Status: Never smoker Past Alcohol Use History: None Reported Past Drug Use History: None Reported Medications and Allergies Home Medications Medication Instructions Recorded Confirmed Type Levothyroxine Sodium [Synthroid] 100 mcg PO DAILY@0500 11/02/23 11/02/23 History Loratadine [Claritin] 10 mg PO DAILY 11/02/23 11/02/23 History Metoprolol Succinate (ER) [Toprol 100 mg PO DAILY 11/02/23 11/02/23 History Xl] hydroCHLOROthiazide [Hydrodiuril] 25 mg PO DAILY 11/02/23 11/02/23 History Allergies Allergy/AdvReac Type Severity Reaction Status Date / Time latex Allergy Swelling Verified 11/02/23 12:08 Physical Exam Vitals: Vital Signs Temp Pulse Pulse Resp BP BP Pulse Ox 11/03/23 15:18 97.6 F 80 18 136/90 95 11/03/23 14:59 84 18 132/81 97 11/03/23 12:00 81 18 133/91 98 11/03/23 08:22 83 18 125/79 98 11/03/23 06:31 97 18 134/89 97 11/03/23 04:00 61 18 123/73 95 11/03/23 00:00 87 16 129/85 97 11/02/23 21:00 98.8 F 79 21 122/85 96 11/02/23 18:00 95 20 169/57 98 Intake and Output 11/03/23 11/03/23 11/03/23 06:59 14:59 22:59 Other: Weight 95.254 kg Results 11/02/23 11:17 11/02/23 11:17 Lipids 11/03/23 Range/Units 06:33 Triglycerides 205.00 H (0.00-149.00) mg/dL Cholesterol 175.00 (0.00-200.00) mg/dL HDL Cholesterol 31.00 L (40.00-60.00) mg/dL Cholesterol/HDL Ratio 5.65 Ratio Current Medications Generic Name Dose Route Start Last Admin Trade Name Freq PRN Reason Stop Dose Admin Aspirin 81 mg 11/03/23 09:00 11/03/23 08:20 Aspirin 81 Mg PO 81 mg DAILY [facility] Administration Atorvastatin Calcium 20 mg 11/03/23 21:00 Atorvastatin 20 Mg Tab PO HS [facility] Famotidine 20 mg 11/02/23 21:00 11/03/23 08:21 Famotidine 20 Mg/2 Ml Vial IV Not Given Q12HR [facility] Heparin Sodium (Porcine) 5,000 unit 11/02/23 21:00 11/03/23 08:21 Heparin Sodium,Porcine 5,000 Unit/Ml 1 Ml Vial SQ Not Given Q12HR [facility] Hydrochlorothiazide 25 mg 11/03/23 09:00 11/03/23 08:21 Hydrochlorothiazide 25 Mg Tab PO 25 mg DAILY [facility] Administration Levothyroxine Sodium 100 mcg 11/03/23 05:00 11/03/23 06:27 Levothyroxine 100 Mcg Tab PO 100 mcg DAILY@0500 [facility] Administration Metoprolol Succinate 100 mg 11/03/23 09:00 11/03/23 08:20 Metoprolol Succinate (Er) 100 Mg Tab.Er.24h PO 100 mg DAILY [facility] Administration Naloxone HCl 0.2 mg 11/02/23 12:14 Naloxone 0.4 Mg/Ml 1 Ml Vial IV Q2M PRN Opioid Reversal Intake and Output 11/03/23 11/03/23 11/03/23 06:59 14:59 22:59 Other: Weight 95.254 kg Patient Weight 11/04/23 06:59 Weight 95.254 kg 11/02/23 11:17 11/02/23 11:17
[2023-11-03] MEDS ORDERED: ATORVASTATIN 20 MG TAB PO SCH (21:00)
== END 2023-11-03 18:06 | disposition home or self-care (01) ==
LOC: EC 09:50 → 3SCARD 12:15 → INTOOBSV 12:15 → 3SCARD 12:32
PROVIDERS: ADMIT Internal Medicine; ATTEND Internal Medicine
DX: R47.81 Slurred speech (principal); R47.1 Dysarthria and anarthria; R42 Dizziness and giddiness; I10 Essential (primary) hypertension; R94.31 Abnormal electrocardiogram [ECG] [EKG]; E06.3 Autoimmune thyroiditis; Z79.890 Hormone replacement therapy; Z79.899 Other long term (current) drug therapy; Z91.040 Latex allergy status
CPT/HCPCS: 96374; 99285; 36415; 93005 ×2; 93306; 80061; 80053; 83735; 84484; 85025; 81025; 83036; 71046; 93880; 70450; 70551; G0378 ×4; J3490

== ENCOUNTER → 2025-02-07 | Outpatient (CLI) | payer BC ==
[2025-02-07 10:28] LABS: Basophils # (A) 0.04 X 10*3/uL (0.00-0.10); Basophils % (A) 0.4 %; HCT 43.6 % (37.2-46.3); HGB 14.6 g/dL (12.0-15.0); Lymphocytes # (A) 2.56 X 10*3/uL (0.90-5.00); Lymphocytes % (A) 26.2 %; MCH 29.8 pg (27.0-32.0); MCHC 33.5 g/dL (32.0-37.0); Mean Platelet Volume 9.8 FL (9.5-12.2); Monocytes # (A) 0.58 X 10*3/uL (0.20-1.00); Monocytes % (A) 5.9 %; NRBC Per 100 WBC 0 X 10*3/uL (0.00-0.01); Neutrophils # (A) 6.36 X 10*3/uL (1.80-7.70); Neutrophils % (A) 65.2 %; Platelet Count 313 X 10*3/uL (140-440); RDW 12.1 % (11.5-14.5); WBC 9.77 X 10*3/uL (4.50-10.00)
[2025-02-07 10:49] LABS: ALT 13 U/L (8-44); AST 13 U/L (13-35); Albumin 3.7 g/dL (3.8-4.9); Albumin/Globulin Ratio 1.48 Ratio (1.60-3.17); Alkaline Phosphatase 72 U/L (41-126); BUN/Creat Ratio 11.38 Ratio (12.00-20.00); Blood Urea Nitrogen 9.1 mg/dL (9.0-27.0); Calcium 8.6 mg/dL (8.7-10.3); Carbon Dioxide 26.7 mmol/L (21.6-31.8); Chloride 104 mmol/L (96-109); Globulin 2.5 g/dL (1.6-3.3); Glucose 106 mg/dL (70-110); LDL Cholesterol,Calculated 91.1 mg/dL (0.0-131.0); Potassium 3.5 mmol/L (3.5-5.5); Sodium 140 mmol/L (135-145); T4, Free (Free Thyroxine) 1.56 ng/dL (0.80-1.80); Total Bilirubin 0.3 mg/dL (0.3-1.2); Total Protein 6.2 g/dL (6.2-8.2)
[2025-02-07 16:49] LABS: Appearance,Urine Clear (Clear); Bilirubin,Urine Negative (Negative); Blood,Urine Negative (Negative); Color,Urine Yellow (Yellow); Ketones,Urine Negative (Negative); Nitrite,Urine Negative (Negative); PH, Urine 7.5; Specific Gravity,Urine 1.009 (1.001-1.030); Urobilinogen,Urine 0.2 E.U./DL
== END | disposition home or self-care (01) ==
LOC: LABWHC1 07:11
PROVIDERS: ATTEND Registered Nurse
DX: I10 Essential (primary) hypertension (principal); E03.9 Hypothyroidism, unspecified; E66.9 Obesity, unspecified; Z79.899 Other long term (current) drug therapy; Z68.34 Body mass index [BMI] 34.0-34.9, adult
CPT/HCPCS: 36415; 80053; 80061; 81003; 83036; 84439; 84443; 84481; 85025